=== PATIENT | female | born 1975 ===

== ENCOUNTER 2019-02-22 12:07 | Inpatient (IN) | payer OTHER ==
[2019-02-22 12:19] LABS: Hematocrit 35.3 % (33.0-51.0); Hemoglobin 10.7 g/dL (11.5-16.0); Mean Corpuscular HGB 25.7 pg (26.0-34.0); Mean Corpuscular HGB Conc 30.3 g/dL (31.5-36.5); Mean Corpuscular Volume 85 fL (80-100); Mean Platelet Volume 10.8 fL (9.1-12.4); Platelet Count 232 K/mm3 (150-400); RDW Coefficient Variation 19.2 % (11.7-14.2); RDW Standard Deviation 58.6 fL (35.1-46.3); Red Blood Cell Count 4.17 M/mm3 (3.80-5.20); White Blood Cell Count 5.89 K/mm3 (4.00-11.30)
[2019-02-25] MEDS ORDERED: CELE100 PO (07:26)
--- NOTE | 2019-02-25 07:57 | NUR ---
History, Chart, Medications and Allergies reviewed before start of procedure. Patient confirms NPO status and agrees with scheduled surgery. Patient reports completing Chlorhexadine shower X2 prior to admission to hospital.
--- NOTE | 2019-02-25 17:54 | NUR ---
SHIFT SUMMARY PT A&OX4, VSS, S/P CARMEN, LOWER ABD & VERTICLE MIDLINE, SCANT DRAINAGE, BINDER ON, RAMA PAD SCANT DRAINAGE. BARKER PATENT & DRAINING YELLOW URINE. PAIN MANAGED W/ ENGINEERING EXECUTIVE. EYAL CLEAR LIQUID, DENIES N&V, DENIES PASSING FLATUS. KPAD ON. STAND AT BEDSIDE. WCTM & TX PER EMAR UNTIL REPORT GIVEN TO ONCOMING BRYAN RN.
[2019-02-25 18:36] LABS: Hemoglobin 8.8 g/dL (11.5-16.0)
[2019-02-26 04:15] LABS: BASOPHILS ABSOLUTE AUTO 0.02 K/mm3 (0.00-0.23); BASOPHILS PERCENT AUTO 0 % (0-2); EOSINOPHILS PERCENT AUTO 0 % (0-6); Hematocrit 26.1 % (33.0-51.0); Hemoglobin 7.8 g/dL (11.5-16.0); IMMATURE GRAN ABSOLUTE AUTO 0.16 K/mm3 (0.00-0.10); IMMATURE GRAN PERCENT AUTO 1 % (0-1); LYMPHOCYTES ABSOLUTE AUTO 1.08 K/mm3 (0.84-5.20); LYMPHOCYTES PERCENT AUTO 5 % (21-46); MONOCYTES ABSOLUTE AUTO 2.06 K/mm3 (0.16-1.47); MONOCYTES PERCENT AUTO 10 % (4-13); Mean Corpuscular HGB 25.9 pg (26.0-34.0); Mean Corpuscular HGB Conc 29.9 g/dL (31.5-36.5); Mean Corpuscular Volume 87 fL (80-100); Mean Platelet Volume 11.3 fL (9.1-12.4); NEUTROPHILS PERCENT AUTO 85 % (41-73); Platelet Count 297 K/mm3 (150-400); RDW Coefficient Variation 19.9 % (11.7-14.2); RDW Standard Deviation 62.6 fL (35.1-46.3); Red Blood Cell Count 3.01 M/mm3 (3.80-5.20); White Blood Cell Count 21.72 K/mm3 (4.00-11.30)
--- NOTE | 2019-02-26 06:39 | NUR ---
SHIFT SUMMARY PT POD#1 CARMEN. AAOX4/ANXIOUS. DISCOMFORT CONTROLLED WITH DILAUDID FIELD ARTILLERY TARGETING TECHNICIAN + TORADOL X1. NAUSEA CONTROLLED WITH 12.5MG PHENERGAN THIS AM, NO EMESIS. DRESSING TO ABD MIDLINE + TRANSVERSE WITH MODERATE AMOUNT RED DRY DRAINAGE, NO INCREASE THIS SHIFT. ABD BINDER IN PLACE. BARKER SECURE WITH MODERATE AMOUNT CLEAR YELLOW OUT. PT RESTING WELL THIS AM POST PAIN + NAUSEA MEDICATIONS. CALL MEGHAN IN [place], WILL REPORT TO DAY SHIFT RN.
--- NOTE | 2019-02-26 19:17 | NUR ---
SHIFT SUMMARY PT A&OX4, VSS, POD1 CARMEN, MEDIPORE DRESSINGS W/SEROSANGUINOUS DRAINAGE CHANGED 2X THIS SHIFT, ABD BINDER ON. PAIN MANAGED WITH 10 MG OXY, WORKING TO WEAN OFF OF GENERAL PEDIATRICIAN, +TORADOL, KPAD ON. DENIES N&V, EYAL CLEAR LIQ DIET. AMB TO BRP W/SBA. AWAITING POST BARKER VOID. REPORT GIVEN TO INDIO BRUNO.
[2019-02-27 05:08] LABS: BASOPHILS ABSOLUTE AUTO 0.05 K/mm3 (0.00-0.23); BASOPHILS PERCENT AUTO 0 % (0-2); EOSINOPHILS ABSOLUTE AUTO 0.06 K/mm3 (0.00-0.68); EOSINOPHILS PERCENT AUTO 0 % (0-6); Hematocrit 21.9 % (33.0-51.0); Hemoglobin 6.4 g/dL (11.5-16.0); IMMATURE GRAN ABSOLUTE AUTO 0.13 K/mm3 (0.00-0.10); IMMATURE GRAN PERCENT AUTO 1 % (0-1); LYMPHOCYTES ABSOLUTE AUTO 3.13 K/mm3 (0.84-5.20); LYMPHOCYTES PERCENT AUTO 18 % (21-46); MONOCYTES ABSOLUTE AUTO 2.23 K/mm3 (0.16-1.47); MONOCYTES PERCENT AUTO 13 % (4-13); Mean Corpuscular HGB Conc 29.2 g/dL (31.5-36.5); Mean Corpuscular Volume 89 fL (80-100); Mean Platelet Volume 10.9 fL (9.1-12.4); NEUTROPHILS ABSOLUTE AUTO 11.44 K/mm3 (1.96-9.15); NEUTROPHILS PERCENT AUTO 67 % (41-73); NRBC ABSOLUTE 0.02 K/mm3 (0.00-0.02); NRBC Auto 0.1 /100 WBC (0.0-0.2); Platelet Count 263 K/mm3 (150-400); RDW Standard Deviation 65.1 fL (35.1-46.3); Red Blood Cell Count 2.46 M/mm3 (3.80-5.20); White Blood Cell Count 17.04 K/mm3 (4.00-11.30)
--- NOTE | 2019-02-27 05:09 | NUR ---
SHIFT SUMMARY: PT A&O X4. HR TACHY AT 115-120 WITH SLIGHTLY ELEVATED BP. O2 SATS STABLE ON RA. DILAUDID VEHICLE WINDOW TINTER + FLUIDS INFUSING. PT WORKING TO WEAN OFF IV PAIN MEDICATION; GIVEN 10MG OXY PER EMAR. EYAL CLEAR LIQ DIET. DENIES N/V. PT DENIES PASSING GAS. HYPOACTIVE BT. PT OUT OF BED TO BATHROOM WITH SBA. VOIDING. BOTH MEDIPORE DRESSINGS INTACT WITH SMALL AMT OF SS DRAINAGE.
--- NOTE | 2019-02-27 07:43 | NUR ---
1 UNIT PRBC INFUSING PT STATED SHE IS GETTING DIZZY WHEN STANDING
--- NOTE | 2019-02-27 08:08 | NUR ---
pt req pain meds 2 tab pt eating breakfast cl diet still no flatus pt stated she has nausea when she lays down
--- NOTE | 2019-02-27 10:15 | NUR ---
PT HEMSTITCHER AT [facility] CALLED FOR UPDATE ON PT CONDITION
--- NOTE | 2019-02-27 11:01 | NUR ---
2ND UNIT PRBC INFUSING
--- NOTE | 2019-02-27 12:13 | NUR ---
PT EATING LUNCH IS GIVEN WITH IS/TCDB WITH DEMONSTRATION
--- NOTE | 2019-02-27 14:30 | NUR ---
2ND UNIT PRBC COMPLETE PT STATED SHE IS LESS DIZZY UPON STANDING
--- NOTE | 2019-02-27 18:22 | NUR ---
kathryn by to see pt mom given to help with flatus and abd binder placed pt eating dinner still on cl diet
--- NOTE | 2019-02-28 06:42 | NUR ---
POD 3 W/P CARMEN. PT VSS T/O NGIHT, HR REMAINS 100-1'TEENS; PT DENIES CP/PRESSURE/SOB. DRESSING INTACT W/NO NEW DRNG NOTED; ABD BINDER IN PLACE. SCANT VAGINAL BLEEDING. ABD REMAINS MOD DISTENDED, PT EYAL CLEAR LIQ PO, REP PASSING SOME FLATUS THIS AM. PT UP INDEP IN ROOM IS VOIDING URINE W/O DIFFICULTY. PAIN MGD W/PO AND PSYCHIATRY RESIDENT PRN. PT USING CALL LIGHT FOR ASSISTANCE, WILL CONT TO MONITOR UNTIL REP GIVEN TO ONCOMING RN.
[2019-02-28 13:07] LABS: Hematocrit 29.6 % (33.0-51.0); Hemoglobin 8.8 g/dL (11.5-16.0)
--- NOTE | 2019-02-28 14:10 | NUR ---
DILAUDID VP STRATEGY DC'D AT THIS TIME, 13MLS WASTED WITH JUAN F MONTELONGO RN. PT GIVEN PO NARCO, WILL CTM
--- NOTE | 2019-02-28 16:28 | NUR ---
DR. RIACRDO HERNANDEZ NOTIFIED OF PT HR CONSISTANTLY 100-115 AND SYSTOLIC BP OVER 150S AT THIS TIME. NO NEW ORDERS, WILL CONTINUE TO MONITOR VS CLOSELY. PT DENIES AND SOB, CHEST PAIN, OR DIZZINESS.
--- NOTE | 2019-02-28 17:18 | NUR ---
SUMMARY: PT IS POD3 FOR CARMEN. NO ACUTE CHANGE TODAY. PT A/O, VSS, ABLE TO AMBULATE IN ROOM, VOIDING FREQUENTLY. NO N/V, ADVANCED TO REG DIET FOR LUNCH. PT STATES PAIN WELL MANAGED WITH 2 NARCO. SURGICAL SITE WNL, REPORTS PASSING GAS. NO REPORT OF VAGINAL BLEED. PLAN IS FOR [facility] TOMORROW [facility]. WILL CTM AND REPORT TO NOC RN.
--- NOTE | 2019-03-01 06:22 | NUR ---
SHIFT SUMMARY SITTING UP SIDEWAYS ON BED FACING THE BATHROOM DOOR. IVF COMPLETED, SL'D PIV. DENIES FURTHER NEEDS AT THIS TIME. NO CHANGES TO PAIN, SHORT TERM RELIEF FOLLOWED BY IMMEDIATE RETURN TO LEVEL OF 6-7/10. ICE TO EAT PROVIDED PER REQUEST. DENIES FURTHER NEEDS AT THIS TIME. SAFETY MEASURES IN PLACE. WILL CONTINUE TO MONITOR.
[2019-03-01] MEDS ORDERED: Norco 7.5-3251 EACH PO (09:38)
[2019-03-01] MEDS ORDERED: PROM25 PO (09:39)
[2019-03-01] MEDS ORDERED: IBUP800 PO (09:40)
[2019-03-01] MEDS ORDERED: ESTR2 PO (13:43)
--- NOTE | 2019-03-01 14:59 | NUR ---
SPOKE WITH DR. HERNANDEZ CONCERNING PT BOWEL CARE, PT HAS NOT HAD A BM SINCE SURGERY. PT IS PASSING GAS, NO NEW ORDERS AT THIS TIME. PT TO TAKE OVER THE COUNTER BOWEL CARE UPON DISCHARAGE, PT EDUCATED REPORT GIVEN TO SOM CAMPBELL RN WHO WILL BE TRANSPORTING PT AT DC. SURGICAL DRESSING CHANGED AND DC EDUCATION WITH SURGICAL DRESSINGS GIVEN [id number]. WILL CTM AND AWAIT PT TO [facility].
--- NOTE | 2019-03-01 15:03 | NUR ---
KIANA CAMPBELL HERE FROM [place] TO TRANSPORT PT AT ABOUT 1350. DISCHARGE INSTRUCTIONS REVIEWED WITH ADRIAN. DR. HERNANDEZ GAVE VERBAL ORDER TO THIS RN FOR PO ESTRASE. ORDER ADDED TO CURRENT MED REC AND DISCHARGE MED REC UPDATED. PLAN IS FOR PT TO FILL ALL MEDICATIONS THROUGH [facility], PT HAS STRIPS. IV DC'D AND PT AUMBULATED OFF UNIT WITH KIANA CAMPBELL AT 1420.
== END 2019-03-01 14:30 | disposition home or self-care (01) | DRG 743 ==
LOC: SURS 02-25 07:08 → PRE IP 02-25 08:45 → SURS 02-25 14:45
PROVIDERS: Nurse Practitioner Obstetrics & Gynecology; Surgery; ADMIT Obstetrics & Gynecology
PROC: 0UT70ZZ Resection of Bilateral Fallopian Tubes, Open Approach (ICD-10-PCS; 2019-02-25)
PROC: 0DN87ZZ Release Small Intestine, Via Natural or Artificial Opening (ICD-10-PCS; 2019-02-25)
PROC: 0DN Gastrointestinal System, Release (ICD-10-PCS; 2019-02-25)
PROC: 0UT90ZL Resection of Uterus, Supracervical, Open Approach (ICD-10-PCS; principal; 2019-02-25 08:45)
PROC: 0UT20ZZ Resection of Bilateral Ovaries, Open Approach (ICD-10-PCS; 2019-02-25 08:45)
PROC: 30233N1 Transfusion of Nonautologous Red Blood Cells into Peripheral Vein, Percutaneous Approach (ICD-10-PCS; 2019-02-27)
DX: D25.9 Leiomyoma of uterus, unspecified (principal); N92.1 Excessive and frequent menstruation with irregular cycle; D50.0 Iron deficiency anemia secondary to blood loss (chronic); F41.8 Other specified anxiety disorders; F90.9 Attention-deficit hyperactivity disorder, unspecified type; N73.6 Female pelvic peritoneal adhesions (postinfective); Z79.899 Other long term (current) drug therapy
CPT/HCPCS: 36415; 36430; 84703; 85014; 85018; 85025; 85027; 86850; 86900; 86901; 86923; 88307; J0690; J1100; J1170; J1650; J1885; J2250; J2270; J2405; J2550; J2704; J3010; J7050; J7120; P9016